=== PATIENT | female | born 1975 | race Caucasian/White ===

== ENCOUNTER 2019-08-20 12:02 | Outpatient (CLI) | payer OTHER ==
[2019-08-20] MEDS ORDERED: GADOPENTETATE DIMEGLUMINE 5 ML VIAL IVP ONE ×2 (12:25→14:57)
[2019-08-20] MEDS ORDERED: IOTHALAMATE MEGLUMINE 50 ML VIAL ONE (12:25)
[2019-08-20] MEDS ORDERED: BUFFERED LIDOCAINE 10 ML SYRINGE ONE (12:25)
[2019-08-20] MEDS ORDERED: IOTHALAMATE MEGLUMINE 50 ML VIAL IVP ONE (14:57)
[2019-08-20] MEDS ORDERED: BUFFERED LIDOCAINE 10 ML SYRINGE IU ONE (14:57)
--- NOTE | 2019-08-20 14:58 | MRI Report ---
Reason: IMPINGEMENT SYNDROME Procedure Date: 08/20/2019 Accession Number: [id number] / [id number] Procedure: MRI - Arthrogram Shoulder RT CPT Code: FULL RESULT: EXAM: RIGHT SHOULDER MRI ARTHROGRAM WITH CONTRAST EXAM DATE: 08/20/2019 02:20 PM. CLINICAL HISTORY: Impingement syndrome. COMPARISON: None. TECHNIQUE: Multiplanar, multisequence T1-weighted and fluid-sensitive sequences of the shoulder after an arthrographic injection of dilute gadolinium, dictated under a separate exam. Other: None. FINDINGS: Acromioclavicular Region: The acromion is type II. The acromioclavicular joint is unremarkable. There is no contrast or fluid in the subacromial/subdeltoid bursa. Glenohumeral Region: No subluxation. There is focal flattening of the posterior superior humeral head, which may indicate a Hill-Sachs deformity. The articular cartilage overlying the humeral head changes, appears moderately eroded. The articular cartilage of the remainder of the humeral head and the bony glenoid appear intact. The glenohumeral ligaments and joint capsule are unremarkable. Bone Marrow: No fracture, marrow edema or bone lesions. Labrum: There is contrast in the superior labrum, tracking anteroposterior and into the biceps anchor, consistent with a SLAP tear. Biceps Tendon: The long head of the biceps tendon and biceps ria are intact. Musculature/Rotator Cuff: There is mild thickening and increased T2 signal in the supraspinatus tendon, consistent with mild tendinosis. Infraspinatus and subscapularis appear intact. No edema or fatty atrophy. Other: The subcutaneous tissues are unremarkable. IMPRESSION: 1. Possible Hill-Sachs deformity, suggesting prior anteroinferior or inferior dislocation/subluxation. 2. SLAP tear. 3. Mild supraspinatus tendinosis. RADIA
--- NOTE | 2019-08-20 15:17 | XRAY Report ---
Reason: IMPINGEMENT SYNDROME Procedure Date: 08/20/2019 Accession Number: [id number] / [id number] Procedure: FL - Arthrogram Needle Placement CPT Code: FULL RESULT: EXAM: RIGHT/LEFT SHOULDER ARTHROGRAPHIC INJECTION WITH FLUOROSCOPIC GUIDANCE EXAM DATE: 08/20/2019 01:54 PM. CLINICAL HISTORY: A pre-MRI right shoulder arthrogram will be performed. COMPARISON: None. TECHNIQUE: The risks, benefits, and alternatives of the procedure were discussed with the patient. All questions were answered. Written and verbal consent were obtained. The glenohumeral joint was marked under fluoroscopy and prepped and draped in a sterile manner. Local anesthesia was performed with 1% lidocaine. A 22-gauge needle was then inserted into the glenohumeral joint. 10 mL of a solution containing 25% 1% lidocaine, 25% iodinated contrast, and a 1:200 dilution of gadolinium contrast in sterile saline was then injected. The needle was removed without immediate complication. Other: None. Fluoroscopy Time: 0.8 minutes. Number of Images: 2. FINDINGS: Bones and joints: Fluoroscopic spot image documents intra-articular needle tip position. Injection: Fluoroscopic images demonstrate needle placement and contrast in the glenohumeral joint. No contrast extravasation outside of the glenohumeral joint. IMPRESSION: Successful fluoroscopically guided arthrographic injection of the right shoulder. See separate MR arthrogram report to follow. DMITRIY
== END 2019-08-20 12:03 | disposition home or self-care (01) ==
LOC: DI 12:02
PROVIDERS: ATTEND Family Medicine
DX: M75.41 Impingement syndrome of right shoulder (principal); S43.431A Superior glenoid labrum lesion of right shoulder, initial encounter; M75.81 Other shoulder lesions, right shoulder
CPT/HCPCS: 23350; 73222; 77002; Q9961

== ENCOUNTER 2019-11-14 09:19 | Day surgery (SDC) | payer OTHER ==
[2019-11-14] MEDS ORDERED: cefTRIAXone 2 GM VIAL ONE (09:20)
[2019-11-14] MEDS ORDERED: LACTATED RINGERS 1,000 ML IV ONE ×2 (09:44→12:10)
[2019-11-14] MEDS ORDERED: SCOPOLAMINE PATCH TOP ONE (10:09)
--- NOTE | 2019-11-14 10:11 | ANESTHESIA ---
Pre-Anesthesia VS, & Labs - Diagnosis right shoulder rotator cuff tear, labral tear, biceps tendonitis - Procedure right shoulder scope, possbiel rotator cuff repair, labral repair, biceps tenodesis Vital Signs: Temp Pulse Resp BP Pulse Ox 36.1 C L 89 16 131/94 H 98 11/14/19 09:28 11/14/19 09:28 11/14/19 09:28 11/14/19 09:28 11/14/19 09:28 Height 5 ft 0.24 in Weight (kg) 85 kg - NPO >8 hours Last Fluid Intake: water at 0800 - Is Patient ?: No Home Medications and Allergies Home Medications: Ambulatory Orders Calcium Carbonate [Calcium] 600 mg PO 11/06/19 Multivitamin [One Daily Multivitamin] 1 each PO 11/06/19 Psyllium Husk (with Sugar) [Fiber Therapy Powder] 368 gm PO 11/06/19 Simvastatin 10 mg PO 11/06/19 Calcium Carbonate [Calcium] 600 mg PO 11/06/19 Multivitamin [One Daily Multivitamin] 1 each PO 11/06/19 Psyllium Husk (with Sugar) [Fiber Therapy Powder] 368 gm PO 11/06/19 Simvastatin 10 mg PO 11/06/19 Allergies/Adverse Reactions: Allergies Allergy/AdvReac Type Severity Reaction Status Date / Time acetaminophen [From Vicodin] Allergy Nausea Verified 11/06/19 15:38 hydrocodone [From Vicodin] Allergy Nausea Verified 11/06/19 15:38 adhesive AdvReac Itching Verified 11/06/19 15:38 coconut butter Allergy Itching Uncoded 11/14/19 09:42 Anes History & Medical History - Anesthetic History Anesthesia Complications: reports: No previous complications - Medical History Cardiovascular: reports: High cholesterol Pulmonary: reports: None Gastrointestinal: reports: None Urinary: reports: None Neuro: reports: None Musculoskeletal: reports: Other Endocrine/Autoimmune: reports: None Blood Disorders: reports: None Skin: reports: None Smoking Status: Never smoker Psychosocial: reports: No issues indicated - Surgical History Gynecologic: section, Hysterectomy Exam General: Alert, Oriented x3, Cooperative, No acute distress Dental: Other ("decaying crown") Mouth Openin Fingerbreadth Neck Mobility: Normal Mallampati classification: III Thyromental Distance: greater than 6 cm Mental/Cognitive Status: Alert/Oriented X3, Normal for patient Plan Anesthesia Type: General, Interscalene Block (right) Regional Block: Per Surgeon's request for Post Op pain control Consent for Procedure(s) Verified and Reviewed: Yes Code Status: Attempt Resuscitation ASA classification: 1-Healthy patient Is this case an emergency?: No
[2019-11-14] MEDS: EPINEPHrine 1 MG/ML AMP ONE ×2 (10:20→10:37)
[2019-11-14] MEDS ORDERED: MIDAZOLAM 2 MG/2 ML VIAL IVP ONE (10:37)
[2019-11-14] MEDS ORDERED: PROPOFOL 200 MG/20 ML VIAL IVP ONE (10:37)
[2019-11-14] MEDS ORDERED: PHENYLEPHRINE 10 MG/ML VIAL IV ONE (10:37)
[2019-11-14] MEDS ORDERED: GLYCOPYRROLATE 1 MG/5 ML VIAL IVP ONE (10:37)
[2019-11-14] MEDS ORDERED: LIDOCAINE-MPF 2% 5 ML VIAL IM ONE (10:37)
[2019-11-14] MEDS ORDERED: fentaNYL 100 MCG/2 ML VIAL IVP ONE (10:37)
[2019-11-14] MEDS ORDERED: KETOROLAC 30 MG/ML VIAL IVP ONE (10:37)
[2019-11-14] MEDS ORDERED: ONDANSETRON 4 MG/2 ML VIAL IVP ONE (10:37)
[2019-11-14] MEDS ORDERED: NEOSTIGMINE 1 MG/1 ML 10 ML MDV IVP ONE (10:37)
--- NOTE | 2019-11-14 11:23 | ANESTHESIA PROCEDURE NOTE ---
Diagnosis: right shoulder rotator cuff tear, labral tear, biceps tendonitis Procedure: Right Interscalene brachial plexus block Consent for Procedure(s) Verified and Reviewed: Yes Height and Weight: Height 5 ft 0.24 in Weight (kg) 85 kg Vital Signs: Temp Pulse Resp BP Pulse Ox 36.1 C L 89 16 131/94 H 98 11/14/19 09:28 11/14/19 09:28 11/14/19 09:28 11/14/19 09:28 11/14/19 09:28 Allergies acetaminophen [From Vicodin] Allergy (Verified 11/06/19 15:38) Nausea hydrocodone [From Vicodin] Allergy (Verified 11/06/19 15:38) Nausea adhesive Adverse Reaction (Verified 11/06/19 15:38) Itching coconut butter Allergy (Uncoded 11/14/19 09:42) Itching Requesting Provider: Gadiel Reyes Location: Right ASA classification: 1-Healthy patient Anes. Monitoring and Equipment: Non-invasive BP, Pulse oximetery Anes. Procedure Start Time: 10:25 Anes. Procedure Stop Time: 10:35 Procedure Notes: After obtaining consent and timeout completed, the patient's right neck was prepped with chloroprep. Versed 2mg was given IV for patient comfort. An ultrasound was used to identify the right brachial plexus between the interscalene muscles. A 22G stimiplex needle was inserted and directed towards the nerve sheath. A total of 30ml of 0.5% ropivicaine mixed with 4mg decadron was injected around the nerve bundle. Adequate spread was noted. No paresthesia was noted. Full evaluation is pending. Patient tolerated the procedure well.
[2019-11-14] MEDS: BUPIVACAINE 0.25% PF 30 ML VIAL ONE ×3 (12:11→13:47)
[2019-11-14] MEDS ORDERED: oxyCODONE 5 MG TABLET PO PRN (14:05)
[2019-11-14] MEDS ORDERED: ONDANSETRON 4 MG/2 ML VIAL IVP PRN (14:05)
--- NOTE | 2019-11-14 14:19 | OPERATIVE REPORT ---
Operative Report - Other Other Information/Narrative: Date of Surgery: 14 November 2019 Pre-Op Diagnosis: Left shoulder SLAP tear, biceps tendinitis, bursitis, possible rotator cuff tear Procedure: Left shoulder arthroscopic rotator cuff repair (subscapularis), Subacromial decompression, SLAP debridement, open biceps tenodesis Postop Diagnosis: Left shoulder subscapularis tear, SLAP tear, biceps tendinitis, bursitis Primary Surgeon: Gadiel Reyes Secondary Surgeon: None Complications: None EBL: 25 cc IMPLANTS: Arthrex 5.5 mm bio composite corkscrew x1 Arthrex fiber tack x1 POSTOPERATIVE PLAN: 0-2 weeks-Sling at all times. Pendulum exercises 5 times per day. 2-6 weeks-Passive and active range of motion. Forward flexion to 120, abduction to 90, external rotation to 30 with elbow at side, no external rotation when abducted, no active flexion of the elbow. 6-12 weeks-gradually increase external rotation by 15 degrees/week leading to full range of motion without limitation. Okay for active elbow flexion but no biceps strengthening. Gradually increase strengthening focusing on rotator cuff and scapular stabilizers. 12 weeksstrengthening of biceps and rotator cuff. 16 weeksadvance to dynamic activities EXAMINATION UNDER ANESTHESIA: ROM: Full and equal to the contralateral side, small clicking sensation can be felt Anterior load and shift: Grade 1/2 globally Posterior load and shift: Grade 1/2 globally Inferior sulcus: Grade 1/2 globally ARTHROSCOPIC FINDINGS: Rotator interval: Normal Biceps tendon & SLAP: Unstable superior labrum anterior tear Subscapularis: Partial thickness tear on the articular side, this was repaired with a single anchor double loaded with a mattress and 1 over the top Rotator Cuff: Superior cuff was without tear on the articular or bursal side HAGL: Normal Labrum: Small degenerative fraying that was debrided Glenoid Cartilage: Global grade 1 changes but largely intact Humeral Head Cartilage: Small full-thickness injury to the posterior head INDICATION FOR SURGERY: 44-year-old female who has had a long history of anterior and lateral shoulder pain which is worse with working away from her body and overhead. She did not receive significant relief from biceps tendon sheath injection. She did not receive significant relief from physical therapy. Nonoperative managment failed to resolve symptoms. The risks, benefits, and alternatives were discussed. Risks included pain, bleeding, infection, damage to nearby structures, lack of symptom relief, implant complications, stiffness, need for further surgeries, DVT, PE, stroke, and even . The patient signed a written consent form. PROCEDURE IN DETAIL: The patient was met in the preoperative holding on the day of the procedure. Operative extremity was signed. Consent was verified. The patient desired to proceed. Regional anesthesia was obtained in the preoperative area. The patient was brought to the operating room and surrendered to anesthesia. Once general anesthesia was obtained the patient was placed in the beach chair position. A soft kidney pad was placed. The head was secured with the neck in a neutral position. The shoulder and arm were prepped and draped in the standard fashion. A surgical timeout was held to confirm the patient identity, procedure, procedure, laterality, allergies, images, and antibiotics. All were in agreement we proceeded. A standard diagnostic arthroscopy was performed utilizing posterior and anterosuperior portals. The anterosuperior portal was created under direct visualization and localized with a spinal needle. The 7 mm cannula was placed anteriorly. The findings of the diagnostic arthroscopy can be found above. I used a shaver to further evaluate the subscapularis tear and found it to be a partial-thickness lesion on the articular side. I then created an anterior superior lateral portal in line with the fibers of subscapularis. Using an elevator I elevated the middle and superior glenohumeral ligaments off of the posterior border of subscapularis. I then used a shaver and radiofrequency ablation wand to release the other 2 sides of the subscapularis. I took down portions of the rotator cuff capsule for better visualization and to increase my ability to work. I then used the rasp and shaver on bur mode to create a bed of bleeding bone at the subscapularis insertion point. I then created a low mid glenoid portal with the correct orientation to allow for implant placement. I then placed the corkscrew in the center of the footprint. I then passed 2 stitches from deep to superficial in a mattress fashion and then a single stitch near the top edge. Excess sutures were then removed. I tied the horizontal mattress with a modified rotor and 4 half hitches alternating posts and this reduced the tendon and held it firmly in place. The other suture was tied as well. I then rotated the arm and found that the subscapularis was moving with the humeral head and was well fixed. SUBACROMIAL DECOMPRESSION: The instruments and cannula were then removed from the glenohumeral joint. The scope trocar was placed in the posterior portal and the acromion was felt. It was then inserted just under the acromion scraping along the bone until the CA ligament was felt. The scope trocar was then brou ght just lateral to the CA ligament and out the anterior incision. The cannula was then brought over the scope trocar arthroscope were inserted. The arthroscope was backed up until the shaver and arthroscope in the subacromial space. I then systemically debrided the bursa using a sucker shaver and radiofrequency ablation wand. A direct lateral incision was made and the bursectomy and decompression was completed through the lateral incision. All soft tissue was debrided from the underside of the acromion and the posterior edge of the CA ligament was lifted. Care was taken to keep the deltoid fascia intact. The rotator cuff was then evaluated and there was no full-thickness tear. I then took her through a safe range of motion and was unable to identify a consistent mechanical sensation. MINI OPEN BICEPS TENODESIS: A 5 cm incision was made near the axillary fold centered over the pectoralis major tendon. Electrocautery was used to obtain hemostasis. The fascia was opened with dissection scissors. Blunt digital dissection was used to identify the intertubercular groove just under the pectoralis major tendon. The long head of the biceps tendon was visualized within this interval. The short head of the biceps was retracted with my finger and the right angle was used to deliver the tendon of the long head of the biceps out of the wound. A mac elevator was then used to debride all synovial tissue from the intertubercular groove. A fibertack was placed high within the groove. Both limbs of the fibertack were pulled on and it was well fixed. I then whipstitched the biceps tendon starting 2 cm proximal to the musculotendinous junction down to the musculotendinous junction and back up to the same 2 cm location with a single limb of the suture tack. The other suture was placed once through the tendon at the 2 cm location. I then cut all excess tendon off. The suture limb that was passed the single time was then pulled on and this reduced the tendon nicely into the groove. The elbow was fully straightened and there was no excess tension on the repair site. I then tied 7 reverse half hitches alternating to secure the tendon in its place. The wound was then irrigated copiously. The portal sites were then closed with 3-0 Monocryl buried. The incisions for open procedures were closed with 2-0 Vicryl in the dermis and a running 3-0 Monocryl in the skin. Mastisol and Steri-Strips were applied. A sterile dressing and a sling was applied. The patient was awakened and transferred to the recovery room.
[2019-11-14] MEDS ORDERED: ONDANSETRON 4 MG/2 ML VIAL ONE (14:35)
[2019-11-14] MEDS ORDERED: ROPIVACAINE 0.5% PF 20 ML AMPULE ONE (14:51)
[2019-11-14] MEDS ORDERED: PROMETHAZINE 25 MG/1 ML VIAL ONE (15:02)
[2019-11-14 16:08] VITALS: BP 115/80
== END 2019-11-14 09:20 | disposition home or self-care (01) ==
LOC: SDS 09:19
PROVIDERS: ATTEND Orthopaedic Surgery
PROC: 0RHJ04Z Insertion of Internal Fixation Device into Right Shoulder Joint, Open Approach (ICD-10-PCS; 2019-11-14)
PROC: 0LQ14ZZ Repair Right Shoulder Tendon, Percutaneous Endoscopic Approach (ICD-10-PCS; 2019-11-14)
PROC: 0RHJ44Z Insertion of Internal Fixation Device into Right Shoulder Joint, Percutaneous Endoscopic Approach (ICD-10-PCS; 2019-11-14)
PROC: 0RNJ4ZZ Release Right Shoulder Joint, Percutaneous Endoscopic Approach (ICD-10-PCS; 2019-11-14)
PROC: 0LS10ZZ Reposition Right Shoulder Tendon, Open Approach (ICD-10-PCS; principal; 2019-11-14 11:00)
DX: S43.431A Superior glenoid labrum lesion of right shoulder, initial encounter (principal); M75.101 Unspecified rotator cuff tear or rupture of right shoulder, not specified as traumatic; M75.21 Bicipital tendinitis, right shoulder; M75.51 Bursitis of right shoulder

== ENCOUNTER 2020-04-21 15:30 | Outpatient (CLI) | payer OTHER ==
--- NOTE | 2020-04-22 09:44 | MRI Report ---
Reason: ROTATOR CUFF TEAR Procedure Date: 04/21/2020 Accession Number: [id number] / [id number] Procedure: MRI - Shoulder RT W/O CPT Code: Final Report FULL RESULT: PROCEDURE: Shoulder RT W/O INDICATIONS: ROTATOR CUFF TEAR TECHNIQUE: Noncontrast oblique coronal T2 fast spin echo with fat saturation, oblique sagittal T1 spin echo and T2 fast spin echo with fat saturation, axial T1 spin echo and T2 fast spin echo with fat saturation through the shoulder. COMPARISON: Right shoulder arthrogram dated 08/20/2019. FINDINGS: Image quality: Excellent. Rotator cuff: There is tendinosis and low-grade articular and bursal surface partial-thickness tear involving distal supraspinatus at its insertion on humeral head extending to musculotendinous junction. Distal infraspinatus tendinosis is seen. Tendinosis and low to moderate grade partial-thickness tear involving superior to mid fibers of distal subscapularis is noted. No full-thickness rotator cuff tendon rupture. Very mild supraspinatus muscle atrophy is seen on sagittal images. Bones and bursae: No bone marrow contusions or fractures. Mild to moderate acromioclavicular joint osteoarthritic changes are seen. No pathologic subacromial/subdeltoid bursal fluid is present. Capsule and soft tissues: In the absence of intra-articular contrast, the labrum and glenohumeral ligaments appear grossly intact. The long head of the biceps tendon demonstrates normal location and morphology. The rotator interval appears normal, without fibrosis. The coracohumeral ligament is normal in thickness. IMPRESSION: 1. Tendinosis and low-grade articular and bursal surface partial-thickness tear involving distal supraspinatus extending to the musculotendinous junction. Distal infraspinatus tendinosis. Subscapularis tendinosis and low to moderate grade partial-thickness tear involving superior to mid fibers of distal subscapularis. Very mild supraspinatus muscle atrophy. 2. Mild to moderate acromioclavicular joint osteoarthritis. 3. No definite focal labral tear is seen on the current study. Reviewed by: Rafael Mraie MD on 04/22/2020 9:43 AM PDT Approved by: Rafael Marie MD on 04/22/2020 9:43 AM PDT Station ID: [id number]
== END 2020-04-21 15:31 | disposition home or self-care (01) ==
LOC: DI 15:30
PROVIDERS: ATTEND Orthopaedic Surgery
DX: M75.111 Incomplete rotator cuff tear or rupture of right shoulder, not specified as traumatic (principal); M19.011 Primary osteoarthritis, right shoulder

== ENCOUNTER 2020-06-12 09:36 | Day surgery (SDC) | payer OTHER ==
[~2020-06-12 09:36] MED LIST: cefTRIAXone 2 GM VIAL ONE
[2020-06-12] MEDS ORDERED: DEXAMETHASONE 4 MG/ML VIAL IVP ONE (09:37)
[2020-06-12] MEDS ORDERED: LIDOCAINE-MPF 2% 5 ML VIAL IM ONE (09:37)
[2020-06-12] MEDS ORDERED: ROCURONIUM 50 MG/5 ML VIAL IVP ONE (09:37)
[2020-06-12] MEDS ORDERED: PROPOFOL 200 MG/20 ML VIAL IVP ONE (09:37)
[2020-06-12] MEDS ORDERED: fentaNYL 100 MCG/2 ML VIAL IVP ONE (09:37)
[2020-06-12] MEDS ORDERED: LACTATED RINGERS 1,000 ML IV ONE ×2 (09:43→12:58)
--- NOTE | 2020-06-12 10:09 | ANESTHESIA ---
Pre-Anesthesia VS, & Labs - Diagnosis right shoulder impingement - Procedure right shoulder arthroscopy, subacromial decompression, distal clavicle excision, possible rotator cuff repair Vital Signs: Temp Pulse Resp BP Pulse Ox 36.4 C L 101 H 18 134/96 H 98 06/12/20 09:54 06/12/20 09:54 06/12/20 09:54 06/12/20 09:54 06/12/20 09:54 Height 5 ft 0.24 in Weight (kg) 85.9 kg - NPO >8 hours - Is Patient ?: No Home Medications and Allergies Home Medications: Ambulatory Orders Ascorbic Acid [Vitamin C] 500 mg PO 06/02/20 Calcium Carbonate [Calcium] 600 mg PO 11/06/19 Multivitamin [One Daily Multivitamin] 1 each PO 11/06/19 Psyllium Husk (with Sugar) [Fiber Therapy Powder] 368 gm PO 11/06/19 Simvastatin 10 mg PO 11/06/19 Ascorbic Acid [Vitamin C] 500 mg PO 06/02/20 Allergies/Adverse Reactions: Allergies Allergy/AdvReac Type Severity Reaction Status Date / Time acetaminophen [From Vicodin] Allergy Nausea Verified 06/02/20 11:38 hydrocodone [From Vicodin] Allergy Nausea Verified 06/02/20 11:38 adhesive AdvReac Itching Verified 06/02/20 11:38 coconut butter Allergy Itching Uncoded 06/02/20 11:38 Anes History & Medical History - Anesthetic History Anesthesia Complications: reports: Post-Operative Nausea/Vomiting - Medical History Cardiovascular: reports: High cholesterol Pulmonary: reports: None Gastrointestinal: reports: None Urinary: reports: None Neuro: reports: None Musculoskeletal: reports: Other Endocrine/Autoimmune: reports: None Blood Disorders: reports: None Skin: reports: None Smoking Status: Never smoker Psychosocial: reports: Anxiety - Surgical History General: Colonoscopy Gynecologic: section Orthopedic: Shoulder arthroplasty Exam General: Alert, Oriented x3, Cooperative, No acute distress Dental: WNL Mouth Openin Fingerbreadth Neck Mobility: Normal Mallampati classification: II Thyromental Distance: 4-6 cm Respiratory: Lungs clear, Normal breath sounds, No respiratory distress, No accessory muscle use Cardiovascular: Regular rate, Normal S1, Normal S2, No murmurs Mental/Cognitive Status: Alert/Oriented X3, Normal for patient Plan Anesthesia Type: General, Interscalene Block (Right) Regional Block: Per Surgeon's request for Post Op pain control Consent for Procedure(s) Verified and Reviewed: Yes Code Status: Attempt Resuscitation ASA classification: 2-Mild systemic disease Is this case an emergency?: No
[2020-06-12] MEDS ORDERED: SCOPOLAMINE PATCH TOP ONE (10:15)
[2020-06-12] MEDS ORDERED: BUPIVACAINE 0.25% PF 30 ML VIAL ONE (10:20)
[2020-06-12] MEDS ORDERED: EPINEPHrine 1 MG/ML AMP ONE (10:20)
[2020-06-12] MEDS ORDERED: EPINEPHrine 1 MG/ML AMP IR ONE (12:02)
[2020-06-12] MEDS ORDERED: BUPIVACAINE 0.25% PF 30 ML VIAL SUBQ ONE (12:58)
[2020-06-12] MEDS ORDERED: oxyCODONE 5 MG TABLET PO PRN (13:18)
[2020-06-12] MEDS ORDERED: ONDANSETRON 4 MG/2 ML VIAL IVP PRN (13:18)
[2020-06-12] MEDS ORDERED: ONDANSETRON 4 MG/2 ML VIAL ONE (13:24)
--- NOTE | 2020-06-12 13:33 | OPERATIVE REPORT ---
Operative Report - Other Other Information/Narrative: Date of Surgery: 12 June 2020 Pre-Op Diagnosis: Right shoulder bursitis, right AC joint arthritis. Possible subscapularis tear Procedure: Right shoulder arthroscopy with intra-articular debridement, bursectomy. Open distal clavicle excision Postop Diagnosis: Same as above. There is no subscapularis tear Primary Surgeon: Gadiel Reyes Secondary Surgeon: None Complications: None EBL: 50 cc IMPLANTS: None POSTOPERATIVE PLAN: 0-2 weeks-Sling at all times. Pendulum exercises 5 times per day. 2-6 weeks-Passive and active range of motion without limitations. 6-12 weeks-Gradually increase strengthening focusing on rotator cuff and scapular stabilizers per protocol. 12 weeks and beyond-Introduce dynamic activities. EXAMINATION UNDER ANESTHESIA: ROM: Full Anterior load and shift: Stable Posterior load and shift: Stable Inferior sulcus: Stable ARTHROSCOPIC FINDINGS: Rotator interval: Normal Biceps tendon & SLAP: Evidence of prior biceps tenodesis. No SLAP tear Subscapularis: There was slight fraying at the repair site but the anchor and the sutures were intact. There was good tension on the subscapularis. A repeat repair was not indicated Rotator Cuff: Normal HAGL: Normal Labrum: Normal Glenoid Cartilage: Normal Humeral Head Cartilage: Normal Subacromial space: Abundant, adherent, thick bursal tissue. This was excised INDICATION FOR SURGERY: 44-year-old female who is 7 months status post shoulder arthroscopy with subscapularis repair and mini open biceps tenodesis. She continued to have mechanical anterior symptoms and potentially had an injury to the shoulder a few weeks after the surgery. She had not improved from preope ratively. AC joint injection improved her symptoms and her symptoms localized to the subacromial space. Nonoperative managment failed to resolve symptoms. The risks, benefits, and alternatives were discussed. Risks included pain, bleeding, infection, damage to nearby structures, lack of symptom relief, implant complications, stiffness, need for further surgeries, DVT, PE, stroke, and even . He signed a written consent form. PROCEDURE IN DETAIL: The patient was met in the preoperative holding on the day of the procedure. Operative extremity was signed. Consent was verified. They desired to proceed. Regional anesthesia was obtained in the preoperative area. They were brought to the operating room and surrendered to anesthesia. Once general anesthesia was obtained they were placed in the lateral decubitus position with the operative side up. An axillary roll was placed and all bony prominences were well-padded. A surgical timeout was held to confirm the patient procedure, identity, procedure, laterality, allergies, images, and antibiotics. All were in agreement we proceeded. A standard diagnostic arthroscopy was performed utilizing posterior and anterosuperior portals. The anterosuperior portal was created under direct visualization and localized with a spinal needle. The 7 mm cannula was placed anteriorly. The findings of the diagnostic arthroscopy can be found above. The subscapularis prior repair site was probed extensively and the implant was found to be intact with sutures. The tendon itself had excellent tension and a repeat repair was not indicated. I debrided the tissue surrounding the subscapularis for better visualization and to allow for full assessment. SUBACROMIAL DECOMPRESSION: The instruments and cannula were then removed from t he glenohumeral joint. The scope trocar was placed in the posterior portal and the acromion was felt. It was then inserted just under the acromion scraping along the bone until the CA ligament was felt. The scope trocar was then brought just lateral to the CA ligament and out the anterior incision. The cannula was then brought over the scope trocar arthroscope were inserted. The arthroscope was backed up until the shaver and arthroscope in the subacromial space. The bursa was very thick and adherent. I then systemically debrided the bursa using a sucker shaver and radiofrequency ablation wand. A direct lateral incision was made and the bursectomy and decompression was completed through the lateral incision. All soft tissue was debrided from the underside of the acromion and the posterior edge of the CA ligament was lifted. Care was taken to keep the deltoid fascia intact. I worked all the way around the front of the humeral head and excised the bursa I also moved laterally to ensure complete excision had been performed. I also came medially to the AC joint and ensure there were no inferior osteophytes at the AC joint. The rotator cuff was then evaluated and there was no full-thickness tear. Final images were taken OPEN DISTAL CLAVICLE EXCISION: A 5 cm incision was made in line with the clavicle, centered over the acromioclavicular joint. Electrocautery was used to obtain hemostasis. Full-thickness skin flaps were made at the level of the fascia/joint capsule. A full-thickness longitudinal was made longitudinally to open the acromioclavicular joint. Electrocautery was used to dissect the joint capsule from the bony surfaces. 2 Homans were placed around the distal clavicle. Rongeur was used to debride the intra-articular disc. An 8 mm resection was measured and performed with a sagittal saw. Care was taken to ensure this cut was parallel to the joint surface. All sharp bony edges were rounded. A finger was placed with into the defect and the arm was adducted fully without any impingement in the joint. The joint was then irrigated copiously. A watertight capsular and fascial closure was performed with 0 Vicryl. The portal sites were then closed with 3-0 Monocryl buried. Any open incisions were closed with 2-0 Vicryl in the dermis and a running 3-0 Monocryl in the skin. Mastisol and Steri-Strips were applied. A sterile dressing and a sling was applied. A sling was placed. The patient was awakened and transferred to the recovery room.
[2020-06-12] MEDS ORDERED: KETOROLAC 15 MG/ML VIAL ONE (13:54)
[2020-06-12] MEDS ORDERED: oxyCODONE 5 MG TABLET ONE (15:08)
[2020-06-12 15:34] VITALS: BP 119/76
== END 2020-06-12 09:37 | disposition home or self-care (01) ==
LOC: SDS 09:36
PROVIDERS: ATTEND Orthopaedic Surgery
DX: M75.51 Bursitis of right shoulder (principal); M19.011 Primary osteoarthritis, right shoulder

== ENCOUNTER 2021-05-18 10:08 | Outpatient (CLI) | payer OTHER ==
--- NOTE | 2021-05-18 12:51 | MRI Report ---
PROCEDURE: Knee LT W/O INDICATIONS: PAIN IN LEFT KNEE TECHNIQUE: Noncontrast sagittal PD fast spin echo and T2 fast spin echo with fat saturation, sagittal 3-D gradie nt sequence with fat saturation; coronal T1 spin echo and PD fast spin echo with fat saturation, and axial PD fast spin echo with fat saturation through the knee. COMPARISON: None. FINDINGS: Image quality: Excellent. Menisci: Mild medial peripheral displacement of medial meniscus is seen bowing medial collateral liga ment. No evidence of focal medial meniscal tear. Suggestion of complex oblique tear involving medial periphery of body/posterior horn junction of lateral meniscus extending to both superior and inferior articulating surfaces. The meniscal root ligaments appear intact. Cruciate ligaments: The anterior and posterior cruciate ligaments appear intact. Medial structures: The medial collateral ligament appears intact. The posterior oblique ligament, s emimembranosus tendon insertions, and oblique popliteal ligament, and meniscocapsular junction appear intact. Visualized portions of the pes anserinus tendons appear normal. No abnormal bursal fluid. Lateral structures: The lateral collateral ligament, long and short heads of the biceps femoris tend on appear intact. The popliteus tendon appears normal; the popliteofibular ligament appears intact. The posterosuperior and anteroinferior popliteomeniscal fascicles appear intact. The arcuate and fa bellofibular ligaments appear intact, around the lateral inferior geniculate artery. Iliotibial band appears normal. Anterior structures: The quadriceps and patellar tendons appear intact. Patellar alignment is alex l. No femoral trochlear dysplasia or ventral trochlear prominence. No edema in the infrapatellar fa t pad. Bones and cartilage: There is bony contusion involving weightbearing portion of lateral femoral condy le. No discrete fracture line is seen. No other area of abnormal marrow signal. Low-grade chondromala sandra involving medial and lateral femoral tibial compartments is seen. Patella cartilage is intact. Joint space: There is small to moderate amount of joint fluid. No Carrero?s cyst. Normal appearing sy novial plicae are incidentally noted. IMPRESSION: 1. Bony contusion involving weightbearing portion of lateral femoral condyle. No fracture or dislocat ion. Mild the medial and lateral femoral tibial compartment osteoarthritis and low-grade chondromalac ia. Small to moderate amount of joint effusion, no gross loose body. 2. Suggestion of complex tear involving medial periphery of body/posterior horn junction of lateral m eniscus extending to both superior and inferior articulating surfaces. No evidence of focal meniscal tear. 3. Cruciate ligaments are intact. Reviewed by: Rafael Marie MD on 05/18/2021 12:49 PM PDT Approved by: Rafael Marie MD on 05/18/2021 12:49 PM PDT Station ID: [id number]
== END 2021-05-18 10:09 | disposition home or self-care (01) ==
LOC: DI 10:08
PROVIDERS: ATTEND Student in an Organized Health Care Education/Training Program
DX: S70.12XA Contusion of left thigh, initial encounter (principal); M17.12 Unilateral primary osteoarthritis, left knee; M94.262 Chondromalacia, left knee; M25.462 Effusion, left knee; R93.6 Abnormal findings on diagnostic imaging of limbs

== ENCOUNTER 2022-04-06 08:44 | Outpatient (CLI) | payer OTHER ==
--- NOTE | 2022-04-06 11:51 | MRI Report ---
PROCEDURE: Shoulder LT W/O INDICATIONS: PAIN IN LEFT SHOULDER TECHNIQUE: Noncontrast oblique coronal T2 fast spin echo with fat saturation, oblique sagittal T1 spin echo and T2 fast spin echo with fat saturation, axial T1 spin echo and T2 fast spin echo with fat saturation t hrough the shoulder. COMPARISON: None. FINDINGS: Image quality: Excellent. Rotator cuff: Mild supraspinatus and infraspinatus tendinosis. No significant rotator cuff tendon tea r is seen. The teres minor tendon is intact. There is mild subscapularis tendinosis. Mild increased s ignal is seen within the teres minor muscle without fatty infiltration or significant loss of muscle bulk. No mass is seen along the course of the axillary nerve. The remaining rotator cuff muscles are normal in bulk. Bones and bursae: No acute trabecular bone injury. Small chronic traction cystic changes are seen in the posterosuperior humeral head. Moderate degenerative changes are seen in the acromioclavicular emiliana int with subchondral edema and subchondral cystic changes. Trace subacromial/subdeltoid bursal fluid. No significant glenohumeral effusion. Capsule and soft tissues: There is nondisplaced tearing of the posterior labrum. The proximal biceps long head tendon is intact. There is mild partial effacement of the fat signal in the rotator interva l. The glenohumeral ligaments are normal in thickness. IMPRESSION: 1.Status post tearing of the posterior labrum. 2.Mild diffuse rotator cuff tendinosis involving the supraspinatus, infraspinatus, and subscapularis tendons. No significant rotator cuff tendon tear. 3.Mild increased signal in the teres minor muscle is suspicious for the denervation changes or less l ikely muscle strain. No mass is seen along the course of the axillary nerve. 4.Moderate acromioclavicular joint osteoarthrosis. 5.Trace subacromial/subdeltoid bursal effusion or bursitis. Reviewed by: Jay Peralat MD on 04/06/2022 11:50 AM PDT Approved by: Jay Peralta MD on 04/06/2022 11:50 AM PDT Station ID: [id number]
== END 2022-04-06 08:45 | disposition home or self-care (01) ==
LOC: DI 08:44
PROVIDERS: ATTEND Student in an Organized Health Care Education/Training Program
DX: S43.492A Other sprain of left shoulder joint, initial encounter (principal); M75.82 Other shoulder lesions, left shoulder; R93.6 Abnormal findings on diagnostic imaging of limbs; R93.89 Abnormal findings on diagnostic imaging of other specified body structures; M19.012 Primary osteoarthritis, left shoulder

== ENCOUNTER 2022-12-02 14:43 | Emergency (ER) | payer OTHER ==
--- NOTE | 2022-12-02 15:24 | XRAY Report ---
PROCEDURE: Shoulder 3 View LT INDICATIONS: Shoulder injury TECHNIQUE: 3 views of the shoulder were acquired. COMPARISON: MRI of shoulder dated 04/06/2022. FINDINGS: Bones: No fractures or dislocations. Acromioclavicular joint and glenohumeral joint osteoarthritic c hanges are seen with subchondral sclerosis and marginal osteophyte formation. No acute fracture or di slocation. No suspicious bony lesions. Visualized ribs appear intact. Soft tissues: No suspicious soft tissue calcifications. IMPRESSION: Acromioclavicular joint and glenohumeral joint osteoarthritis. No acute fracture or disl ocation. No gross soft tissue abnormalities. Reviewed by: Rafael Marie MD on 12/02/2022 3:22 PM PST Approved by: Rafael Marie MD on 12/02/2022 3:22 PM PST Station ID: [id number]
[2022-12-02 19:47] VITALS: BP 143/91
[2022-12-02] MEDS ORDERED: KETOROLAC 10 MG TABLET PO STA (20:04)
[2022-12-02] MEDS ORDERED: oxyCODONE/ACET 5/325 Prepack 4 PO STA (20:04)
--- NOTE | 2022-12-02 20:07 | ED Physician Documentation ---
PD HPI UPPER EXT INJURY - Stated complaint Stated Complaint: LT SHOULDER PX - Chief complaint Chief Complaint: Ext Problem - History obtained from History obtained from: Patient - Additonal information Additional information: 47-year-old woman has had shoulder problems on both sides. She had a lot of problems with her left shoulder last year and had an MRI showing a labral tear. She was in physical therapy which was not really helpful. Today she was picking up a box of potato chips which really was not heavy and developed more severe pain. Pain is across the superoposterior part of the shoulder. There is no fall. She is right-handed. Review of Systems Constitutional: reports: Reviewed and negative Ears: reports: Reviewed and negative Cardiac: reports: Reviewed and negative Respiratory: reports: Reviewed and negative GI: reports: Reviewed and negative PD PAST MEDICAL HISTORY - Past Medical History Cardiovascular: High cholesterol Respiratory: None Neuro: None Endocrine/Autoimmune: None GI: None : None HEENT: None Psych: None Musculoskeletal: Other Derm: None - Past Surgical History General: Colonoscopy Ortho: Shoulder arthroplasty /MECHATRONICS TECHNICIAN: section - Present Medications Home Medications: Ambulatory Orders Medication Instructions Recorded Confirmed Calcium Carbonate [Calcium] 600 mg PO 11/06/19 Multivitamin [One Daily 1 each PO 11/06/19 Multivitamin] Psyllium Husk (with Sugar) [Fiber 368 gm PO 11/06/19 Therapy Powder] Simvastatin 10 mg PO 11/06/19 Ascorbic Acid [Vitamin C] 500 mg PO 06/02/20 Ketorolac [Toradol] 10 mg PO Q6H PRN #20 tablet 12/02/22 Oxycodone HCl/Acetaminophen 1 - 2 each PO Q6H PRN #14 tablet 12/02/22 [Percocet 5-325 mg Tablet] - Allergies Allergies/Adverse Reactions: Allergies Allergy/AdvReac Type Severity Reaction Status Date / Time acetaminophen [From Vicodin] Allergy Nausea Verified 12/02/22 15:00 hydrocodone [From Vicodin] Allergy Nausea Verified 12/02/22 15:00 adhesive AdvReac Itching Verified 12/02/22 15:00 coconut butter Allergy Itching Uncoded 12/02/22 15:00 - Social History Smoking Status: Never smoker PD ED PE NORMAL - Vitals Vital signs reviewed: Yes - General General: Alert and oriented X 3, No acute distress - Extremities Extremities: Other (Mild tenderness across the superior and posterior part of the left shoulder joint. She is able to abduct to a little less than 90 degrees with positive supraspinatus testing. Internal and external rotation are relatively painless.) - Neuro Neuro: Alert and oriented X 3 Results - Vitals Vitals: Vital Signs - 24 hr 12/02/22 12/02/22 12/02/22 14:57 17:02 19:46 Temperature 36.3 C L 36.4 C L 36.4 C L Heart Rate 100 85 84 Respiratory 16 16 16 Rate Blood Pressure 148/95 H 135/100 H 143/91 H O2 Saturation 97 99 98 Oxygen O2 Source Room air - Rads (name of study) Three-view x-ray of the Left shoulder showing degenerative changes. Radiology: Final report received, EMP read indepedently Departure - Departure Disposition: Home, Self Care Clinical Impression: Tear of left glenoid labrum Qualifiers: Encounter type: initial encounter Qualified Code(s): S43.432A - Superior clarence oid labrum lesion of left shoulder, initial encounter Condition: Good Record reviewed to determine appropriate education?: Yes Instructions: Arthroscopy Shoulder Conditions Tx Prescriptions: Oxycodone HCl/Acetaminophen [Percocet 5-325 mg Tablet] 1 - 2 each PO Q6H PRN #14 tablet PRN Reason: pain Ketorolac [Toradol] 10 mg PO Q6H PRN #20 tablet PRN Reason: Pain Comments: I sent your prescriptions electronically to the [facility] pharmacy on the [employer] base. As discussed, your prior MRI showed a tear in the labrum which is part of the socket of the joints. You should follow-up with your primary care physician and consider restarting physical therapy. Until then do the gentle range of motion exercises as we discussed. Not unreasonable to consider referral to orthopedics as well. Return for new or worsening symptoms. I am prescribing a short course of narcotic pain medication for you. These are potentially dangerous and addictive medications that should be used carefully. These medications may constipate you. Take an [id number] stool softener (docusate) twice daily with plenty of water while taking these medications. If you go 24 hours without a bowel movement, take [id number] miralax, per package instructions. Do not drink or drive while taking these medications. If you received narcotic or sedating medications while in the emergency department, do not drive for 24 hours. Store this medication in a safe, secure place and out of reach of children. It is a violation of federal law to give or sell this medication to another person or to use in a manner other than prescribed. The ED will not refill narcotic prescriptions, including prescriptions lost or stolen. To dispose of unwanted medications: 1. [facility] at [address] in [place] has a medication drop box. They accept prescription medications (in pill form) Monday through Monday 9:00 a.m. to 5:00 p.m. 2. The [facility] [employer] accepts prescription medications (in pill form only) for disposal year round. Call for more information. 3. Contact the [facility] for the next [facility] sponsored prescription drug collection event. , [phone], or [phone]; Note that many narcotic pain relievers also contain Tylenol/acetaminophen. Please ensure that your total dose of acetaminophen from all sources does not exceed 3 g (3000 mg) per day.
== END 2022-12-02 20:35 | disposition home or self-care (01) ==
LOC: ED 14:43
DX: S43.432A Superior glenoid labrum lesion of left shoulder, initial encounter (principal); X50.0XXA Overexertion from strenuous movement or load, initial encounter; Y93.89 Activity, other specified; Y92.009 Unspecified place in unspecified non-institutional (private) residence as the place of occurrence of the external cause
CPT/HCPCS: 73030; 99283; 99284; A9270